=== PATIENT | female | born 2000 ===

== ENCOUNTER 2020-11-09 16:46 | Emergency (ER) | payer OTHER ==
[~2020-11-09] VITALS: Ht 154.9 cm; Wt 46.3 kg
[2020-11-09 16:57] VITALS: BP 138/84
[2020-11-09] MEDS ORDERED: DEXAMETHASONE 4 MG/ML, 1ML PO ONE (17:30)
--- NOTE | 2020-11-09 21:10 | NUR ---
NIL X 1
--- NOTE | 2020-11-09 21:41 | NUR ---
NIL X 2
--- NOTE | 2020-11-09 21:51 | NUR ---
NIL X 3
== END 2020-11-09 21:52 ==
LOC: ED 17:00
DX: R50.9 Fever, unspecified (principal); Z20.822 Contact with and (suspected) exposure to COVID-19; R05 Cough; R43.9 Unspecified disturbances of smell and taste
CPT/HCPCS: 71045; 99284; U0003; U0005